=== PATIENT | male | born 1970 | race Caucasian/White ===

== ENCOUNTER 2019-04-24 15:52 | Emergency (ER) | payer BC ==
[~2019-04-24] VITALS: Ht 162.6 cm; Wt 75.0 kg
[2019-04-24 16:38] LABS: BASOPHILS % (AUTO) 0.8 % (0-1); EOSINOPHILS % (AUTO) 0.5 % (0-6); HEMATOCRIT 46.6 % (42.0-52.0); HEMOGLOBIN 15.8 g/dl (14.0-17.9); LYMPHOCYTES % (AUTO) 17.4 % (21-51); MEAN CORPUSCULAR HEMOGLOBIN 27.7 PG (27.0-31.0); MEAN CORPUSCULAR VOLUME 81.6 FL (78-98); MEAN PLATELET VOLUME 6.8 FL (7.4-10.4); MONOCYTES # (AUTO) 0.3 X10'3 (0-0.9); NEUTROPHILS # (AUTO) 4.4 X10'3 (1.8-7.7); NEUTROPHILS % (AUTO) 76.3 % (42-75); PLATELET COUNT 280 X10'3 (140-440); RED BLOOD COUNT 5.71 X10'6 (4.70-6.10); RED CELL DISTRIBUTION WIDTH 13.2 % (11.5-14.5); WHITE BLOOD COUNT 5.8 X10'3 (4.5-11.0)
[2019-04-24 16:52] LABS: ALANINE AMINOTRANSFERASE 25 U/L (12-78); ALBUMIN 4.6 G/DL (3.4-5.0); ALBUMIN/GLOBULIN RATIO 1.6 (1.1-1.5); ALKALINE PHOSPHATASE 62 IU/L (46-116); ANION GAP 9 (8-16); ASPARTATE AMINO TRANSFERASE 10 U/L (10-37); BILIRUBIN,TOTAL 0.5 MG/DL (0.1-1.0); BLOOD UREA NITROGEN 14 MG/DL (7-18); BUN/CREATININE RATIO 14.4 (5.4-32.0); CALCIUM 8.9 MG/DL (8.5-10.1); CHLORIDE 104 MMOL/L (99-107); CREATININE 0.97 MG/DL (0.60-1.10); GLUCOSE 101 MG/DL (70-104); POTASSIUM 3.6 MMOL/L (3.5-5.1); SODIUM 141 MMOL/L (135-145); TOTAL CARBON DIOXIDE 28.4 MMOL/L (24-32); TOTAL PROTEIN 7.5 G/DL (6.4-8.2); eGFR 83 ML/MIN
--- NOTE | 2019-04-24 17:01 | NUR ---
PATIENT REPORTS THREE EPISODES OF LIGHTHEADED WITH REFT ARM TINGLING MORE THAN RIGHT ARM TINGLING SINCE THANKSGIVING TODAY: WOKE UP 0600, LEFT ARM ANTERIOR TINGLING, WORSE AFTER HE WORKED OUT FPATIENT FELT FOGGY AND BOTH ARMS TINGLING AT 1500: TO [facility] ER LASRT EPISODE WAS LAST SATURDAY NIGHT TO [facility] WHO DOUBLED HIS LISINOPRIL FROM 20 MG TO 40 MG DAILY
[2019-04-24] MEDS ORDERED: HYDR12.55 PO (17:21)
[2019-04-24] MEDS ORDERED: lisinopril 10 MG tablet PO ONE (17:40)
[2019-04-24 18:23] VITALS: BP 171/109
== END 2019-04-24 18:28 | disposition home or self-care (01) ==
LOC: ER 15:52
DX: I10 Essential (primary) hypertension (principal); Z79.899 Other long term (current) drug therapy
CPT/HCPCS: 36415; 80053; 84484; 85025; 93005; 99284

== ENCOUNTER 2020-01-27 12:08 | Day surgery (SDC) | payer BC ==
[2020-01-27] VITALS (14 sets, daily range): BP systolic 113–135; BP diastolic 71–91
[~2020-01-27] VITALS: Ht 162.6 cm; Wt 75.6 kg
[~2020-01-27 12:08] MED LIST: HYDR12.55 PO
[2020-01-27] MEDS ORDERED: BUPIVAcaine/PF 2.5 mg/ml (0.25%) 30ml vial ONE (13:00)
[2020-01-27] MEDS ORDERED: LIDOcaine 1% 30ml preserv. free vial ONE (13:00)
[2020-01-27] MEDS ORDERED: fentaNYL/PF 50MCG/1 ML 2ML syringe ONE (13:28)
[2020-01-27] MEDS ORDERED: midazolam 2 mg/2 ml injection ONE (13:28)
[2020-01-27] MEDS ORDERED: propofol inj 20 ML IV ONE (13:30)
[2020-01-27] MEDS ORDERED: LIDOcaine 2% (20mg/ml) 5ml vial ONE (13:30)
[2020-01-27] MEDS ORDERED: rocuronium 10mg/ml inj IV ONE (13:30)
[2020-01-27] MEDS ORDERED: famotidine 10mg tablet PO ONE (13:31)
[2020-01-27] MEDS ORDERED: ceFAZolin 2gm in dextrose, iso 50 ML IV ONE (13:35)
[2020-01-27] MEDS ORDERED: ceFAZolin 1000mg inj ONE (13:48)
[2020-01-27] MEDS ORDERED: ondansetron/PF 4mg/2ml inj IV PRN (14:15)
[2020-01-27] MEDS ORDERED: ringers solution, lacted 1,000 ML IV SCH (14:15)
[2020-01-27] MEDS ORDERED: meperidine/PF 25mg/ml syringe IV PRN ×3 (14:15)
[2020-01-27] MEDS ORDERED: morphine 2 MG/ML inj. syringe IV PRN (14:15)
[2020-01-27] MEDS ORDERED: morphine 4 MG/ML inj SYRINge IV PRN (14:15)
[2020-01-27] MEDS ORDERED: proCHLORperazine 10 MG/2 ml inj IV PRN (14:15)
[2020-01-27] MEDS ORDERED: LISI40TA4 PO (14:17)
[2020-01-27] MEDS ORDERED: TRAZ-251 PO (14:17)
[2020-01-27] MEDS ORDERED: AMLO10TA53 PO (14:17)
[2020-01-27] MEDS ORDERED: HYDR12.55 PO (14:21)
[2020-01-27] MEDS ORDERED: glycopyrrolate 0.2mg/ml inj ONE (14:56)
[2020-01-27] MEDS ORDERED: neostigmine methylsulfate 1 MG/ML 10ml vial ONE (14:56)
[2020-01-27] MEDS ORDERED: dexamethasone sod phosphate 4mg/ml inj. ONE (14:56)
[2020-01-27] MEDS ORDERED: ondansetron/PF 4mg/2ml inj ONE (14:56)
[2020-01-27] MEDS ORDERED: acetaminophen 1,000mg/100ml IV 100 ML IV ONE (14:56)
[2020-01-27] MEDS ORDERED: meperidine/PF 25mg/ml syringe ONE (15:10)
[2020-01-27] MEDS ORDERED: albuterol 60 PUFF/8GM Inhaler IH ONE (15:14)
--- NOTE | 2020-01-27 15:14 | NUR ---
Received from OR via BA , accompanied by Anesthesiologist JEREMIE and report given by Anesthesiolgist. PATIENT WITH 20G PIV IN LEFT UR RUNNING LR AT 100. DENIES PAIN AT THIS TIME. PATIENT WITH 4 LAP BANDAIDS PRESENT- ALL CDI. 10L MASK ON WITH 95% SATURATIONS. Addendum: 01/27/20 at 1528 by Corby Hsieh RN, RN Amended: Links added.
[2020-01-27] MEDS ORDERED: HYDROcodone/acetaminophen 10/325mg tab PO PRN (15:25)
[2020-01-27] MEDS ORDERED: HYDROcodone/acetaminophen 5mg/325mg tablet PO PRN (15:25)
--- NOTE | 2020-01-27 18:13 | NUR ---
Received from OR via BA , accompanied by Anesthesiologist ISAIAS and report given by Anesthesiolgist. PATIENT WITH 20G PIV IN LEFT UR RUNNING LR AT 100. DENIES PAIN AT THIS TIME. RIGHT AXILLA DRESSING CDI AND HECTOR DRAIN PRESENT WITH BULB SUCTION. 10L MASK ON WITH 100% SATURATION.
--- NOTE | 2020-01-27 20:03 | NUR ---
.ALL DC CRITERIA HAS BEEN MET. IV OUT WITHOUT COMPLICATION, GARCIA CATHETER PRESENT NOW WITH 500CC URINE OUT. CHANGED TO LEG BAG AT MD REQUEST. OUT VIA WHEELCHAIR TO PERSONAL VEHICLE. PRESENT TO TAKE PATIENT HOME. Addendum: 01/27/20 at 2013 by Corby Hsieh RN, RN Amended: Links added.
[2020-01-28] MEDS ORDERED: ringers solution, lacted 1,000 ML IV SCH (05:00)
[2020-01-28] MEDS ORDERED: famotidine 10mg tablet PO ONE (05:30)
[2020-01-28] MEDS ORDERED: ceFAZolin 2gm in dextrose, iso 50 ML IV ONE (06:00)
== END 2020-01-27 20:03 | disposition home or self-care (01) ==
LOC: PAS 12:08
PROVIDERS: ATTEND Surgery
DX: K40.90 Unilateral inguinal hernia, without obstruction or gangrene, not specified as recurrent (principal); I10 Essential (primary) hypertension; G47.33 Obstructive sleep apnea (adult) (pediatric); F17.290 Nicotine dependence, other tobacco product, uncomplicated; Z79.899 Other long term (current) drug therapy; Z83.3 Family history of diabetes mellitus; Z82.3 Family history of stroke; Z82.49 Family history of ischemic heart disease and other diseases of the circulatory system; Z80.42 Family history of malignant neoplasm of prostate
CPT/HCPCS: 49650; 82948; C1781; J0131; J0690; J1100; J2001; J2175; J2250; J2270; J2405; J2704; J2710; J3010; J3490; J7120; S2900; A4215; A4618